=== PATIENT | female | born 2000 | race Caucasian/White ===

== ENCOUNTER 2024-12-29 02:34 | Emergency (ER) | payer BC, MEDICAID ==
[2024-12-29] MEDS: Sodium Chloride 0.9% 1,000 ML IV SCH (03:00)
[2024-12-29] MEDS: Ondansetron 4 MG/2 ML SDV IVPUSH ONE (03:07)
[2024-12-29] MEDS: Ketorolac 30 MG/ML SDV IVPUSH ONE (03:07)
[2024-12-29 03:08] LABS: BASOPHILS PERCENT AUTO 0.2 % (0.2-1.5); EOSINOPHILS ABSOLUTE AUTO 0.1 x10-3/uL (0.0-0.8); EOSINOPHILS PERCENT AUTO 0.9 % (0.6-8.1); HEMATOCRIT 42.2 % (34.2-48.2); HEMOGLOBIN 14.3 g/dL (11.4-15.5); LYMPHOCYTES ABSOLUTE AUTO 1.4 x10-3/uL (1.0-4.4); LYMPHOCYTES PERCENT AUTO 13.8 % (18.4-52.1); MEAN CORPUSCULAR HEMOGLOBIN 28.6 pg (23.9-33.9); MEAN CORPUSCULAR HGB CONC 33.9 g/dL (31.9-34.8); MEAN CORPUSCULAR VOLUME 84.4 fL (76.7-100.5); MEAN PLATELET VOLUME 7.7 fL (7.1-12.4); MONOCYTES ABSOLUTE AUTO 0.9 x10-3/uL (0.3-1.0); MONOCYTES PERCENT AUTO 8.4 % (4.4-15.7); NEUTROPHILS ABSOLUTE AUTO 7.8 x10-3/uL (1.5-6.3); NEUTROPHILS PERCENT AUTO 76.6 % (30.8-76.2); PLATELET COUNT,PLT 299 x10(3)uL (151-488); RED CELL DISTRIBUTION WIDTH 13.5 % (12.3-16.5); WHITE BLOOD CELL COUNT,WBC 10.2 x10-3/uL (3.0-10.3)
[2024-12-29 03:16] LABS: BLOOD UREA NITROGEN,BUN 10 mg/dL (7-18); BUN/CREATININE RATIO 11.1 (9-20); CALCIUM 8.8 mg/dL (8.6-10.2); CARBON DIOXIDE,CO2 28 mmol/L (21-32); CHLORIDE,CL 103 mmol/L (100-110); CREATININE 0.9 mg/dL (0.55-1.02); EST CRCL DRUG DOSING (CG) 92.92 mL/min; ESTIMATED GFR 91 mL/min (>60); GLUCOSE RANDOM 105 mg/dL (80-116); POTASSIUM,K 3.5 mmol/L (3.5-5.3); SODIUM,NA 139 mmol/L (135-145)
[2024-12-29 03:22] LABS: ALANINE AMINOTRANSFERASE,ALT 57 U/L (12-36); ALBUMIN 3.6 g/dL (3.5-5.2); ALKALINE PHOSPHATASE 78 IU/L (56-112); ASPARTATE AMNIOTRANSFERASE,AST 21 IU/L (5-25); BILIRUBIN TOTAL 1.1 mg/dL (0.1-1.3); PROTEIN TOTAL,TP 7.2 g/dL (6.0-8.0)
== END 2024-12-29 03:45 | disposition home or self-care (01) ==
LOC: FB.ED 02:34
DX: T67.5XXA Heat exhaustion, unspecified, initial encounter (principal); Z88.8 Allergy status to other drugs, medicaments and biological substances; Z91.030 Bee allergy status; Z79.899 Other long term (current) drug therapy
CPT/HCPCS: 36415; 80053; 85025; 96361; 96374; 96375; 99283; 99284; J1885; J2405; J7030